=== PATIENT | female | born 2000 | race Caucasian/White ===

== ENCOUNTER 2022-06-09 12:35 | Emergency (ER) | payer BC, OTHER ==
[~2022-06-09] VITALS: Ht 167 cm; Wt 72.0 kg
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
[2022-06-09] MEDS ORDERED: ACETAMINOPHEN 500 MG TAB (TYLENOL) PO ONE (13:00)
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
[2022-06-09] MEDS ORDERED: NS 100 ML (IVPB) BAG IV ONE (13:30)
[2022-06-09] MEDS ORDERED: IOHEXOL 350 MG/ML 100 ML (OMNIPAQUE 350) VIAL IV ONE (13:30)
[2022-06-09] MEDS ORDERED: HOLD METFORMIN - RECEIVED CONTRAST 20 ML VIAL IV SCH (13:30)
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
[2022-06-09 14:03] VITALS: BP 124/82
== END 2022-06-09 14:03 | disposition home or self-care (01) ==
LOC: ER 12:39
DX: S20.219A Contusion of unspecified front wall of thorax, initial encounter (principal); R00.0 Tachycardia, unspecified; Z28.310 Unvaccinated for COVID-19; V48.5XXA Car driver injured in noncollision transport accident in traffic accident, initial encounter; Y92.410 Unspecified street and highway as the place of occurrence of the external cause
CPT/HCPCS: 70450; 71045; 72125; 73030; 74177